=== PATIENT | female | born 1990 | race Caucasian/White ===

== ENCOUNTER 2016-10-20 19:55 | Observation (INO) | payer OTHER ==
[~2016-10-20] VITALS: Ht 165.1 cm; Wt 80.3 kg
--- NOTE | 2016-10-20 23:17 | DIAGNOSTIC IMAGING REPORT ---
PROCEDURE: XR LUMBAR SPINE 2 OR 3 VIEWS INDICATION: TRAUMA/INJURY TECHNIQUE: Three views of the lumbar spine COMPARISON: None. FINDINGS: Five lumbar-type vertebral bodies are present. Normal vertebral body height without fracture. Normal AP and transverse alignment. Disc spacing is normal. No significant endplate or facet joint degeneration. The visible osseous pelvis and bowel gas pattern are normal. IMPRESSION: 1. Intact lumbar spine.
--- NOTE | 2016-10-21 01:32 | ED ORDER SUMMARY ---
..... Patient: GERARDO RAMSEY OrderSheet [facility] VisitID: [id number] [place] [address] 26y, F Registration Date/Time: 10/20/2016 ORDER SHEET Weight: 72.5 kg (stated) Allergies: No Known Drug Allergy GENERAL ORDERS: Lumbar Spine 2 or 3V Urgent (20:55 10/20/2016 EKoroleva P.A.-C) (Ack 20:57 SRedmond) (21:19 Bj) Urine Urgent (22:30 10/20/2016 Venkata HAMMONDS) (Ack 22:35 SRedmpaula) (22:36 SRedmond) MEDICATION ORDERS: IV FLUIDS: Toradol IV 30 mg (NOW) (20:21 10/20/2016 EKoroleva P.A.-C) (Ack 20:26 HSoule) (Cancelled: Patient [id number] AMcKenna) Valium IV 2 mg (HIGH ALERT MEDICATION, NOW) (20:21 10/20/2016 EKoroleva P.A.-C) (Ack 20:26 HSoule) (20:40 AMcKenna) Dilaudid IV 0.5 mg (HIGH ALERT MEDICATION, NOW) (20:51 10/20/2016 EKoroleva P.A.-C) (Ack 20:51 AMcKenna) (20:56 HSoule) Dilaudid IV 0.5 mg (HIGH ALERT MEDICATION) (21:39 10/20/2016 EKoroleva P.A.-C) (Ack 21:40 AMcKenna) (21:49 AMcKenna) Dilaudid IV 1 mg (HIGH ALERT MEDICATION, NOW) (22:11 10/20/2016 EKoroleva P.A.-C) (Ack 22:13 HSoule) (22:18 TLewis R.N.) Valium IV 2 mg (NOW) (22:26 10/20/2016 Venkata HAMMONDS) (Ack 22:27 HSoule) (22:39 AMcKenna) Dilaudid IV 0.5 mg + 0.25 mg titrate (NOW) (23:43 10/20/2016 Venkata HAMMONDS) (Ack 23:44 HSoule) (23:48 HSoule) ORDER SHEET NOTES: [Electronically signed by Naila Andrews (06:10/21/2016)] [Electronically signed by Orville Martin MD (10:19 10/21/2016)] [Electronically locked/signed by Naila Andrews (06:10/21/2016)]
--- NOTE | 2016-10-21 01:32 | ED NURSING NOTES ---
Clinical Report - Nurses [facility] [address] [place] [address] 10/20/2016 19:56 Patient: GERARDO RAMSEY TRIAGE Triage time 19:57 Oct 20 2016. Acuity: LEVEL 2. Chief Complaint: BACK PAIN. SEPSIS SCREEN: Sepsis Screen: negative. Negative (no infection suspected/documented). Heart rate greater than 90. LAMONTE COMA SCORE: [place] Coma Scale: 15- eyes open spontaneously (4); best verbal response- oriented x 4 (5); best motor response- obeys commands (6). --20:06 AliM 19:57 10/20/16. BP: 134/95. HR: 113. RR: 18. O2 saturation: 98%. Temp: 98.4 F (oral). Pain level now: 6/10. Additional comments: Cramping pain, worse with movement. --20:06 AliM. Weight: 72.5 kg stated. Height/Length: 65 inches Per Patient. BMI: 26.6. --20:05 AliM. Medications None. --19:58 AliM. Allergies No Known Drug Allergy. --19:58 AliM. History Arrived by EMS. Historian: patient. Accompanied by family. Primary physician (none). ( Pt fell at home and is non-ambulatory). This started just prior to arrival. ( Pt states she was climbing stairs when she coughed and immediately felt numbness/burning/weakness on her lower back down both legs. Pt states her back slowly went out and she fell to the ground. Pt and EMS reports pt in non ambulatory. Pt states she has felt similar symptoms after childbirth. Pt reports neck/back pain recently.). She has had numbness and weakness. No history of recent trauma. Occurred at home. No tingling. Treatment MBA INTERN: None. EMS treatment MBA INTERN verbally communicated. BP: 137 / 88. HR: 97. RR: 16. O2 saturation: 97. ( EMS reports pt fell. Pt reports numbness and burning in lower back, hips and down both legs.). PAST MEDICAL HX: Tetanus status: unknown. Immunizations: status is unknown. Last normal menstrual period- 2 weeks ago. SOCIAL HX: Current every day light tobacco smoker- less than 1/2 a pack per day. History of occasional drug use: marijuana. No alcohol use. No infectious disease exposure. ABUSE ASSESSMENT: No report of abuse. NUTRITIONAL RISK ASSESSMENT: The nutritional risk assessment revealed no deficiencies. FUNCTIONAL ASSESSMENT: Functional assessment: no impairments noted. LEARNING NEEDS ASSESSMENT: The learning needs assessment revealed no barriers. FALL RISK ASSESSMENT: Fall risk assessment completed. Risk factors identified include severe pain and patient history of fall and impairment of mobility and sensation. Fall interventions initiated. Side rails up x2. Brakes on Bed in low position. Patient visible from nurses' station. Family at bedside. Call light in reach of patient. Instructed not to get up without assistance. SKIN INTEGRITY ASSESSMENT: Skin integrity risk assessment completed. No skin integrity risk identified. --20:06 AliM. PROBLEMS: Allergic Reaction. Pharyngitis. Chest Pain. Headache. Atypical Chest Pain. Immunizations. --19:58 AliM. Interventions ID band on patient. To treatment room. --20:06 AliM. PHYSICAL ASSESSMENT To room via stretcher. GENERAL / NEURO / PSYCH: Alert. Oriented X 4. Appears in no acute distress. She has had intermittent numbness of the right leg and left leg. RESPIRATORY: Respirations not labored. Chest nontender. CVS: Pulses: right dorsalis pedis 1+ and left dorsalis pedis 2+. Capillary refill less than 2 seconds. GI / : Abdomen soft and nontender. EXTREMITIES: Limited ROM present in the right lower leg and left hip and left lower leg. ( Pt reports sensation upon touch of feet bilaterally.). BACK: Limited ROM of the back (pt unable to stand, limited ROM in lower extremities bilaterally.). Abnormal ROM of neck and back. --20:10 AliM. NURSING PROGRESS NOTES 20:01 10/20/2016 Site #1 started via IV in the right antecubital space with an 20g angiocath, with aseptic technique and good blood return; one attempt. Blood drawn. Saline lock flushed with 10 mL saline (IV done by Naila Andrews RN). --20:11 AliM The plan of care for this patient has been created. Reassurance given. Two patient identifiers checked. Call light placed in reach. Side rails up x 2. Bed placed in lowest position. Brakes of bed on. Patient ready for evaluation- ED physician notified. ED physician notified. --20:12 AliM 20:40 10/20/2016 Valium (Diazepam) IVP 2 mg given over 1 minute(s) via site #1. Allergies verified, confirmed 5 rights and sedative warning given to the patient. IV patency established. IV site checked: no pain, redness, or swelling. IV flushed thoroughly pre- and post-medication administration. IVP given by RN. --20:40 AliM 20:40 10/20/2016 Toradol IV 30 mg (NOW) was refused by patient because of concern over the side effects (Pt states medication makes her body "painful"). Luis Hammond --20:40 AliYonatan ( Pt refused Toradol. Pt states medication makes her body uncomfortable. PA notified.). --20:42 AliM 20:56 10/20/2016 Dilaudid (HYDROmorphone HCl PF) IVP 0.5 mg given over 1 minute(s) via site #1. Allergies verified, confirmed 5 rights and sedative warning given to the patient. IV patency established. IV site checked: no pain, redness, or swelling. IV flushed thoroughly pre- and post-medication administration. IVP given by RN. --20:56 Naila Andrews 21:21 Patient assisted with use of bedpan. Voided 250 mL urine. Checked patient name and birthdate urine collected; sample sent to lab. --21:22 Gunnar, Pam, ER Tech1 The plan of care for this patient has been created. Cold pack applied. Reassurance given. Call light placed in reach. Side rails up x 2. Bed placed in lowest position. Brakes of bed on. --21:32 AliM 21:30 10/20/16. BP: 132/84. HR: 93. RR: 16 (regular, unlabored and normal). O2 saturation: 97% on room air. Temp: 99.3 F (oral). Pain level now: 8/10. Additional comments: Pt reports pain is still present; ice packs provided. Reassured pt I will notify her when imaging results come back. --21:32 AliM 21:26 10/20/2016 Dilaudid IVP Response: no adverse reaction symptoms are the same. The patient feels the same. (Pt reports pain 8/10; ice packs provided.). --21:36 AliM 21:49 10/20/2016 Dilaudid (HYDROmorphone HCl PF) IVP 0.5 mg given over 2 minute(s) via site #1. Allergies verified, confirmed 5 rights and sedative warning given to the patient. IV patency established. IV site checked: no pain, redness, or swelling. IV flushed thoroughly pre- and post-medication administration. IVP given by RN. --21:49 Joyce 22:07 10/20/16. Pain level now 8/10. --22:08 Naila Andrews Reassessment after medication administered. Overall patient status- she states feels the same. --22:08 Naila Andrews 22:17 10/20/16. BP: 140/87. HR: 104. RR: 14. O2 saturation: 98%. Pain level now 6/10. --22:17 Cecil Pope R.N. ( MD present in room.). --22:17 Cecil Pope R.N. 22:18 10/20/2016 Dilaudid (HYDROmorphone HCl PF) IVP 1 mg given over 1 minute(s) via site #1. Allergies verified, confirmed 5 rights and sedative warning given to the patient and patient's family. IV patency established. IV site checked: no pain, redness, or swelling. IV flushed thoroughly pre- and post-medication administration. IVP given by RN. --22:18 Cecil Pope R.N. 22:34 10/20/2016 Valium (Diazepam) IVP 2 mg given over 2 minute(s) via site #1. Allergies verified, confirmed 5 rights and sedative warning given to the patient. IV patency established. IV site checked: no pain, redness, or swelling. IV flushed thoroughly pre- and post-medication administration. IVP given by RN. --22:39 Joyce The plan of care for this patient has been created. Monitoring of patient in place. Reassurance given. Call light placed in reach. Side rails up x 2. Bed placed in lowest position. Brakes of bed on. ( Pt repositioned with pillow under left hip). --23:22 Joyce 23:22 10/20/16. BP: 125/72. HR: 83. RR: 18. O2 saturation: 97%. Pain level now: 02/17. --23:23 Joyce 23:40. Blackjack Supervisor provided for the general exam by the physician. --23:45 McQuoid, Pam, ER Tech1 23:48 10/20/2016 Dilaudid (HYDROmorphone HCl PF) IVP 0.5 mg given over 1 minute(s) via site #1. Allergies verified, confirmed 5 rights and sedative warning given to the patient. IV patency established. IV site checked: no pain, redness, or swelling. IV flushed thoroughly pre- and post-medication administration. IVP given by RN. --23:48 Naila Andrews ( Patient oxygen saturation down to 89% after medication administration, 2 L NC applied.). --23:55 Naila Andrews 00:23 10/21/16. ( Asked pt to try walking, sitting on floor and stated "She is NOT going to get up to walk" and "I know my , she won't do that".). --00:23 Elena Mcneal, RJose. Pulse oximeter placed on patient. Reassurance given. Call light placed in reach. Side rails up x 2. Bed placed in lowest position. Brakes of bed on. --00:36 Joyce 00:34 10/21/16. BP: 106/65. HR: 74. RR: 16 (regular, unlabored and normal). O2 saturation: 100% on nasal cannula at 2 liters/minute. Pain level now: 11/18. --00:36 Joyce ( MD was present in the room and attempted to get the patient to walk with the use of a walker. Pt was able to sit and stand on without assistance, but the pt stated she was having burning in the mid lower back. Pt was able to take a small step forward with the use of the walker. Pt was unable to go further and was able to take a step back and laid down in the bed. Pt was tearful and crying. The was able to roll the pt in a comfortable position.). --01:17 Cecil Pope R.N. DISPOSITION / DISCHARGE 02:14 10/21/16. BP: 105/66. HR: 92. RR: 20. O2 saturation: 100% on nasal cannula at 2 liters/minute. Pain level now: 11/18. --02:15 Naila Andrews Condition at departure: stable. Admitted. Report was given to a nurse via a phone call. Report included patient's care, treatment, medications, reviewed medication reconcilliation, and condition (including any recent changes or anticipated changes). All questions were answered. Report was acknowledged and care was transferred. (Lu STOUT). Patient's personal items include: shirt, pants and cell phone; items were transported with the patient. --02:15 Naila Andrews 02:15 10/21/2016 Site #[address] upon admission; patent, no pain and no signs of infection or infiltration; flushes easily. --02:15 Naila Andrews 02:25 10/21/16. Transported via stretcher by [employer] with O2. --02:37 Naila Andrews ( charting reviewed by wiley RN). --06:00 Naila Andrews. Locked/Released at 10/21/2016 6:01 by Naila Andrews,
--- NOTE | 2016-10-21 01:32 | ED ORDER SUMMARY ---
..... Patient: GERARDO RAMSEY OrderSheet [facility] VisitID: [id number] [address] [place] [address] 26y, F Registration Date/Time: 10/20/2016 ORDER SHEET Weight: 72.5 kg (stated) Allergies: No Known Drug Allergy GENERAL ORDERS: Lumbar Spine 2 or 3V Urgent (20:55 10/20/2016 EKoroleva P.A.-C) (Ack 20:57 SRedmond) (21:19 Bj) Urine Urgent (22:30 10/20/2016 Venkata HAMMONDS) (Ack 22:35 SRedmpaula) (22:36 SRedmond) MEDICATION ORDERS: IV FLUIDS: Toradol IV 30 mg (NOW) (20:21 10/20/2016 EKoroleva P.A.-C) (Ack 20:26 HSoule) (Cancelled: Patient Usthqqn47:45 AMcKenna) Valium IV 2 mg (HIGH ALERT MEDICATION, NOW) (20:21 10/20/2016 EKoroleva P.A.-C) (Ack 20:26 HSoule) (20:40 AMcKenna) Dilaudid IV 0.5 mg (HIGH ALERT MEDICATION, NOW) (20:51 10/20/2016 EKoroleva P.A.-C) (Ack 20:51 AMcKenna) (20:56 HSoule) Dilaudid IV 0.5 mg (HIGH ALERT MEDICATION) (21:39 10/20/2016 EKoroleva P.A.-C) (Ack 21:40 AMcKenna) (21:49 AMcKenna) Dilaudid IV 1 mg (HIGH ALERT MEDICATION, NOW) (22:11 10/20/2016 EKoroleva P.A.-C) (Ack 22:13 HSoule) (22:18 TLewis R.N.) Valium IV 2 mg (NOW) (22:26 10/20/2016 Venkata HAMMONDS) (Ack 22:27 HSoule) (22:39 AMcKenna) Dilaudid IV 0.5 mg + 0.25 mg titrate (NOW) (23:43 10/20/2016 Venkata HAMMONDS) (Ack 23:44 HSoule) (23:48 HSoule) ORDER SHEET NOTES: [Electronically signed by Naila Andrews (06:10/21/2016)] [Electronically signed by Orville Martin MD (10:19 10/21/2016)] [Electronically locked/signed by Naila Andrews (06:10/21/2016)]
--- NOTE | 2016-10-21 01:32 | ED CLINICAL REPORT ---
Clinical Report - Physicians/Mid Levels [facility] [address] [place] [address] 10/20/2016 19:56 Patient: GERARDO RAMSEY Time Seen: 20:24 Oct 20 2016. Arrived- By ambulance. Historian- EMS personnel and family. HISTORY OF PRESENT ILLNESS Chief Complaint: BACK PAIN. It is described as being severe and in the area of the lower lumbar spine. The quality is noted to be "pain". Onset was just prior to arrival and it is still present. Modifying factors. (worse with movement). No bladder dysfunction, bowel dysfunction or sensory loss. Additional history - Patient reports while walking in her driveway, hit a coughing episode, developed low back pain, no low back pain persists, she will paresthesias, weakness to her legs, and slowly had to be put down. Denies indirect trauma or impact to the low back. Denies any fevers or chills, history of PE or DVT. Denies any nausea or vomiting. Reports she has been unable to ambulate. No medications prior to arrival. Patient notes the possibility of an injury. Similar symptoms previously: None. Recent medical care: Not recently seen/assessed. REVIEW OF SYSTEMS No fever, difficulty with urination or urination, urinary frequency or headache. No cough, nausea, vomiting, chills or fever. No double vision, ear pain, sore throat, chest pain or cough. No difficulty breathing, abdominal pain, black stools, bloody stools or constipation. No diarrhea, nausea, vomiting, joint pain or neck pain. No laceration or skin lesions or rash. The patient has had back pain. She has had numbness of the right leg (moderate) and left leg (moderate). All systems otherwise negative, except as recorded above. PAST HISTORY PCP: none PROBLEMS: Allergic Reaction. Pharyngitis. Chest Pain. Headache. Atypical Chest Pain. Has not had a prior back injury. Problems: Allergic Reaction. Pharyngitis. Chest Pain. Headache. Atypical Chest Pain. Immunizations. LNMP - Last Normal Menstrual Period. Medications: None. Allergies: No Known Drug Allergy. SOCIAL HISTORY Smoker- current status unknown. History of drug use. ADDITIONAL NOTES The nursing notes have been reviewed. PHYSICAL EXAM Vital Signs: 10/20/2016 19:57 BP: 134/95. HR: 113. RR: 18. O2 saturation: 98%. Temp: 98.4 F. Pain level now: 610. Appearance: Anxious. Appears to be in pain. Patient in mild distress. ENT: Ears normal. Pharynx normal. Neck: Normal inspection. CVS: Heart sounds normal. Respiratory: No respiratory distress. Breath sounds normal. Abdomen: No visible injury. Soft. No mass. No abdominal tenderness. Back: Muscle spasm of the back. Soft tissue tenderness. Limited ROM in the back. Rectal: Rectal exam normal and nontender. (normal saddle sensation to pin). Skin: Skin warm. Normal skin color. Neuro: Oriented X 3. No alteration in mental status. No cranial nerve deficit. No motor deficit. No sensory deficit. No sensory deficit. Reflex exam: right patellar 2+, left patellar 2+, right Achilles 0 and left Achilles 0. LABS, X-RAYS, AND EKG LS-Spine X-rays: (IMPRESSION: 1. Intact lumbar spine. Electronically Final signed by:Avelina Bianchi MD 10/20/2016 11:17:48 PM). PROGRESS AND PROCEDURES Course of Care: Patient in the ER in the supine position, with legs slightly bent at the knees, with a pillow underneath, has good distal range of motion, with inability to extend at the knee. patient with low back pain, afraid to move. She has good sensation no Case discussed with Dr. Martin, who will also see the patient. Lumbar x-rays unremarkable at this time, suspect myofascial strain, lumbar strain versus bulging disc. Less likely cauda equina or spinal cord abscess in light of findings and exam history, as well as history of event. Assumed care from Sergio Bernardo. Independent history and exam done. /Savannah Martin MD Pt given serial doses of Dilaudid and Valium to the point of mild hypoxemia. Despite this should could barely get from supine to sitting and could barely stand but could not walk. The likelihood of her managing at home at this moment is very low. Dr Carter is here in the ED. Dx is most likely severe lumbar muscle spasm. Less likely lumbar disk. Not a neurosurgical emergency. 10/21/2016 00:34 BP: 106/65. HR: 74. RR: 16. O2 saturation: 100%. Pain level now: 11/18. 10/20/2016 23:22 BP: 125/72. HR: 83. RR: 18. O2 saturation: 97%. Pain level now: 02/17. 10/20/2016 22:17 BP: 140/87. HR: 104. RR: 14. O2 saturation: 98%. 10/20/2016 21:30 BP: 132/84. HR: 93. RR: 16. O2 saturation: 97%. Temp: 99.3 F. Pain level now: 03/20. Patient is stable. Patient/family counseled. Disposition: Admitted. CLINICAL IMPRESSION INTRACTABLE BACK PAIN. (Electronically signed by Orville Martin MD 10/21/2016 10:19)
--- NOTE | 2016-10-21 02:03 | Progress Note ---
Subjective General Brief Note: 26 y.o. female with acute onset back pain and inability to move her lower ext. Brought to ER for further eval. Given pain meds and benzos in the ER and still not moving well and severe pain. Admitted for pain control and if not improving may consider MRI in am.
[2016-10-21 02:46] VITALS: BP 110/77
--- NOTE | 2016-10-21 03:14 | HISTORY AND PHYSICAL ---
ADMITTED: 10/21/2016 CHIEF COMPLAINT: 1. Back pain 2. Lower extremity weakness HISTORY OF PRESENT ILLNESS: The patient is a 26-year-old female who was at home when she reached up and felt a pop in her back where she coughed and sneezed at the same time and then had severe back pain and was unable to move her lower extremities with weakness. She had the ambulance called and brought her into the emergency department for further evaluation. MEDICAL/SURGICAL HISTORY: Past medical history: She has generally been healthy. Past surgical history: She has had left finger surgery, partial amputation. MEDICATIONS: 1. She does not take any medications. ALLERGIES: 1. SHE DOES NOT HAVE ANY ALLERGIES TO MEDICATIONS. SOCIAL HISTORY: . She smokes tobacco. Rare alcohol use. She also smokes marijuana as well. FAMILY HISTORY: Positive for hypertension, diabetes, heart disease in both grandmother and grandfather and she has also got a father who of kidney cancer. REVIEW OF SYSTEMS: That is positive for chronic migraines and history of a bad back ever since an epidural on her first child around 12 years ago. She has otherwise had a negative review of systems. Prior to this, she was doing everything at home without any issues or problems. No bowel or bladder problems, etc. PHYSICAL EXAMINATION: GENERAL: The patient is a sedated female who is unable to communicate effectively due to medications and fatigue. VITAL SIGNS: Blood pressure 134/95, heart rate of 113, respirations 18, temperature 98.4, saturating 98% on room air. HEENT: Her extraocular movements are intact. Her oropharynx has moist mucous membranes. NECK: Supple without lymphadenopathy. LUNGS: Clear to auscultation bilaterally. HEART: Regular rate and rhythm. No murmur. ABDOMEN: Soft, slightly tender to palpation in her lower abdominal region bilaterally, nonfocal. GENITOURINARY: Deferred as performed by emergency department doctor. RECTAL: Deferred as performed by emergency department doctor and has normal rectal tone per emergency department physician. EXTREMITIES: Strength and sensation She states that she is able to feel things equally on both lower extremities bilaterally. Her upper extremities are working and moving normally. Her lower extremities. She is minimally able to push out against my hand, also minimally able to pull in against my hands for flexion and extension of her lower extremities. She has normal DTRs at her ankles and her knees. Her physical exam initially, the emergency department doctor was able to have her move her extremities and/or stand; however, after giving her doses of Dilaudid and diazepam, she was able to briefly stand at the bedside per emergency department doctor. LAB/IMAGING: Her urine is negative. Lower back x-rays are intact and appear normal. IMPRESSION: 1. This is a 26-year-old female who presents to the emergency department with severe acute onset of lower back pain and lower extremity weakness. She is also a smoker who has a history of a bad back post-epidural. PLAN: She is going to be admitted and watched for observation and see if she spontaneously improves with her lower extremity weakness. If not, we will have physical therapy ordered as well as consider an MRI if she is continuing to have significant issues with lower extremity weakness and her severe pain.
--- NOTE | 2016-10-21 03:30 | NUR ---
0245 From ED. Unable to scoot from stretcher to bed. Slider board used. Buster fairly well. & mother @bedside. Mother wanting to stay overnight, as she drove 4hrs to get here. Discussed w/nsg sup & agreed mother could stay in waiting room here on 2nd floor. 0300 Med pt w/Dilaudid. She became nauseated, so Zofran given & was effective. RT placed ETCO2 monitor. Pt has some numbness to L lateral thigh & buttock. Describes pain as spasms & has stabbing pain to low back. Now feels she is getting Migraine. When asked what she takes @home, she states Ibuprofen. Offered to call MD for this, but she says timing is off for it, & it won't be effective now. Ice to low back & head. IV infusing. Plan is PT.
--- NOTE | 2016-10-21 05:27 | NUR ---
Pt was able to use bedpan w/assist. Reports pain is improved since onset, but still c/o 8/10 pain, grimacing & was not sleeping. Med again w/1mg Dilaudid.
[2016-10-21 06:54] VITALS: BP 132/82
--- NOTE | 2016-10-21 07:41 | NUR ---
Pt had c/o severe nausea at 0645 & also wanting pain rx. t/c to Dr. Carter as Zofran not yet due. Order taken for X1 Phenergan & this was given. Began to give Dilaudid & pt became increasingly drowsy. Pt & mother agree that 0.5 mg Dilaudid is probably adequate in addition to Phenergan. Discused w/oncoming nurse. ETCO2 is on.
--- NOTE | 2016-10-21 09:14 | NUR ---
DR CHISHOLM WENT INTO SEE PT AND DO ASSESSMENT. PT CONT TO HAVE BACK AND LOWER BACK PAIN WITH MOVEMENT AND BLE MANIPULATION. PT IS TEARFUL WITH ANY MOVEMENT. SCDS HAVE BEEN PLACED. MOTHER IS AT BEDSIDE. PT ENCOURAGED TO ANSWER QUESTIONS AND IDENTIFY PAIN AREA. PT HAS TACTILE SENSATION BLE AND IS ABLE TO MOVE BLE. BUE HAS MOVEMENT AND SENIOR WEALTH ADVISOR. ORDERED MRI AND IV IS INFUSING WITHOUT DIFFICULTY.
--- NOTE | 2016-10-21 10:19 | ED MED RECONCILIATION SUMMARY ---
Patient: GERARDO RAMSEY Medication Reconciliation Report [facility] VisitID: [id number] [address] [place] [address] 26y, F Registration Date/Time: 10/20/2016 Weight: 72.5 kg Height/Length: 65 in. BMI: 26.6 ALLERGIES: No Known Drug Allergy The patient's Home Medications are listed below: NONE. The source(s) of the original Home Medication information: Not obtained. The following Medications were given to the patient in the Emergency Department: Valium [IVP] IVP 2 mg, administered: 10/20/2016 8:40:00 PM Dilaudid [IVP] IVP 0.5 mg, administered: 10/20/2016 8:56:00 PM Dilaudid [IVP] IVP 0.5 mg, administered: 10/20/2016 9:49:00 PM Dilaudid [IVP] IVP 1 mg, administered: 10/20/2016 10:18:00 PM Valium [IVP] IVP 2 mg, administered: 10/20/2016 10:34:00 PM Dilaudid [IVP] IVP 0.5 mg, administered: 10/20/2016 11:48:00 PM The following Medications were prescribed to the patient: None.
--- NOTE | 2016-10-21 10:19 | ED DISCHARGE INSTRUCTIONS ---
Patient: GERARDO RAMSEY General Instructions [facility] VisitID: [id number] [address] [place] [address] 26y, F Registration Date/Time: 10/20/2016 INTRACTABLE BACK PAIN. (Electronically signed by Orville Martin MD 10/21/2016 10:19)
--- NOTE | 2016-10-21 10:19 | ED MED RECONCILIATION SUMMARY ---
Patient: GERARDO RAMSEY Medication Reconciliation Report [facility] VisitID: [id number] [address] [place] [address] 26y, F Registration Date/Time: 10/20/2016 Weight: 72.5 kg Height/Length: 65 in. BMI: 26.6 ALLERGIES: No Known Drug Allergy The patient's Home Medications are listed below: NONE. The source(s) of the original Home Medication information: Not obtained. The following Medications were given to the patient in the Emergency Department: Valium [IVP] IVP 2 mg, administered: 10/20/2016 8:40:00 PM Dilaudid [IVP] IVP 0.5 mg, administered: 10/20/2016 8:56:00 PM Dilaudid [IVP] IVP 0.5 mg, administered: 10/20/2016 9:49:00 PM Dilaudid [IVP] IVP 1 mg, administered: 10/20/2016 10:18:00 PM Valium [IVP] IVP 2 mg, administered: 10/20/2016 10:34:00 PM Dilaudid [IVP] IVP 0.5 mg, administered: 10/20/2016 11:48:00 PM The following Medications were prescribed to the patient: None.
--- NOTE | 2016-10-21 10:19 | ED MAR SUMMARY ---
..... Medication Administration Record [facility] [address] [place] [address] Patient: GERARDO RAMSEY Visit ID: [id number] 26y, F Weight: 72.5 kg Height/Length: 65 in BMI: 26.6 ALLERGIES: No Known Drug Allergy Given 20:40 10/20/2016 AliM, Medication Administered: VALIUM [IVP] (DIAZEPAM), Dose: 2 mg IVP over 1 minute(s), Site: #1 right AC. Medication Ordered: Valium IV 2 mg (HIGH ALERT MEDICATION, NOW). Given 20:56 10/20/2016 Naila Andrews, Medication Administered: DILAUDID [IVP] (HYDROMORPHONE HCL PF), Dose: 0.5 mg IVP over 1 minute(s), Site: #1 right AC. Medication Ordered: Dilaudid IV 0.5 mg (HIGH ALERT MEDICATION, NOW). Given 21:49 10/20/2016 AliM, Medication Administered: DILAUDID [IVP] (HYDROMORPHONE HCL PF), Dose: 0.5 mg IVP over 2 minute(s), Site: #1 right AC. Medication Ordered: Dilaudid IV 0.5 mg (HIGH ALERT MEDICATION). Given 22:18 10/20/2016 Cecil Pope R.N. Medication Administered: DILAUDID [IVP] (HYDROMORPHONE HCL PF), Dose: 1 mg IVP over 1 minute(s), Site: #1 right AC. Medication Ordered: Dilaudid IV 1 mg (HIGH ALERT MEDICATION, NOW). Given 22:34 10/20/2016 AliM, Medication Administered: VALIUM [IVP] (DIAZEPAM), Dose: 2 mg IVP over 2 minute(s), Site: #1 right AC. Medication Ordered: Valium IV 2 mg (NOW). Given 23:48 10/20/2016 aNila Andrews, Medication Administered: DILAUDID [IVP] (HYDROMORPHONE HCL PF), Dose: 0.5 mg IVP over 1 minute(s), Site: #1 right AC. Medication Ordered: Dilaudid IV 0.5 mg + 0.25 mg titrate (NOW).
--- NOTE | 2016-10-21 10:19 | ED MAR SUMMARY ---
..... Medication Administration Record Located Within [facility] [address] [place] [address] Patient: GERARDO RAMSEY Visit ID: [id number] 26y, F Weight: 72.5 kg Height/Length: 65 in BMI: 26.6 ALLERGIES: No Known Drug Allergy Given 20:40 10/20/2016 AliM, Medication Administered: VALIUM [IVP] (DIAZEPAM), Dose: 2 mg IVP over 1 minute(s), Site: #1 right AC. Medication Ordered: Valium IV 2 mg (HIGH ALERT MEDICATION, NOW). Given 20:56 10/20/2016 Naila Andrews, Medication Administered: DILAUDID [IVP] (HYDROMORPHONE HCL PF), Dose: 0.5 mg IVP over 1 minute(s), Site: #1 right AC. Medication Ordered: Dilaudid IV 0.5 mg (HIGH ALERT MEDICATION, NOW). Given 21:49 10/20/2016 AliM, Medication Administered: DILAUDID [IVP] (HYDROMORPHONE HCL PF), Dose: 0.5 mg IVP over 2 minute(s), Site: #1 right AC. Medication Ordered: Dilaudid IV 0.5 mg (HIGH ALERT MEDICATION). Given 22:18 10/20/2016 Cecil Pope R.N. Medication Administered: DILAUDID [IVP] (HYDROMORPHONE HCL PF), Dose: 1 mg IVP over 1 minute(s), Site: #1 right AC. Medication Ordered: Dilaudid IV 1 mg (HIGH ALERT MEDICATION, NOW). Given 22:34 10/20/2016 AliM, Medication Administered: VALIUM [IVP] (DIAZEPAM), Dose: 2 mg IVP over 2 minute(s), Site: #1 right AC. Medication Ordered: Valium IV 2 mg (NOW). Given 23:48 10/20/2016 Naila Andrews, Medication Administered: DILAUDID [IVP] (HYDROMORPHONE HCL PF), Dose: 0.5 mg IVP over 1 minute(s), Site: #1 right AC. Medication Ordered: Dilaudid IV 0.5 mg + 0.25 mg titrate (NOW).
--- NOTE | 2016-10-21 10:19 | ED DISCHARGE INSTRUCTIONS ---
Patient: GERARDO RAMSEY General Instructions [facility] VisitID: [id number] [address] [place] [address] 26y, F Registration Date/Time: 10/20/2016 INTRACTABLE BACK PAIN. (Electronically signed by Orville Martin MD 10/21/2016 10:19)
--- NOTE | 2016-10-21 11:31 | NUR ---
Upon entering room family was A with pt rolling to the left. Education was given on the log roll technique and hand out was also given. pt stated I could ask her about PLOF and house set up. pt lives with in a tri-level house wih 5 stairs to enter and 1 stairs up to the bedroom. There are railings on both sides. She has 3 kids at home and does not currently work secondary to a neck injury. pt's family stated they would like the MRI results before any further PT is given. Will ck kostas for movement part of the evaluation tomorrow 10-22-16.
--- NOTE | 2016-10-21 12:33 | NUR ---
TO MRI ON BED.
--- NOTE | 2016-10-21 14:03 | NUR ---
RETURNED FROM MRI
--- NOTE | 2016-10-21 14:22 | DIAGNOSTIC IMAGING REPORT ---
PROCEDURE: MR LUMBAR SPINE W/WO CONTRAST INDICATION: neurological deficits TECHNIQUE: Noncontrast T1, T2, and STIR sagittal images. T1 and T2 axial images. COMPARISON: None. FINDINGS: L1-2: Normal. L2-3: Normal. L3-4: Normal. L4-5: Normal. L5-S1: Focal herniated nucleus pulposus L5-S1 on the right. There is posterior displacement of the nerve root this level. IMPRESSION: 1. Focal herniated nucleus pulposus L5-S1 on the right.
[2016-10-21 15:11] VITALS: BP 103/61
[2016-10-21 18:15] VITALS: BP 120/82
--- NOTE | 2016-10-21 22:28 | NUR ---
patiet is alert and oriented. RESTING CURRENTLY. LUNGS SOUNDS CLEAR. SCDS ON PER ORDERS. VSS. BOWEL TONES PRESENT ALL QUARDRANTS. DR AWARE OF CURRENT LABS WAS PASSED OFF IN REPORT.
[2016-10-21 23:52] VITALS: BP 104/61
[2016-10-22 02:51] VITALS: BP 88/57
--- NOTE | 2016-10-22 03:35 | NUR ---
Has been sleeping well tonight. at bedside. Pt in much better spirits. pain only 4/10 to low back, so Motrin given. Pt still w/some numbness in BLE. Has +sensation, +pulses & able to move LE in bed (w/pain). SCDs on.
--- NOTE | 2016-10-22 04:00 | NUR ---
After assisted pt on bedpan, pt had severe "cramping" in legs. Med w/Dilaudid.
[2016-10-22 06:14] VITALS: BP 95/60
[2016-10-22 06:19] VITALS: BP 95/60
--- NOTE | 2016-10-22 10:42 | NUR ---
NUTRITION ASSESSMENT: S: Pt admitted with back pain and lower extremity weakness. Went to visit pt this am, working with therapies. Appetite poor d/t pain. Only ate a little of her breakfast this am per care staff. O: Diet Rx: General Regular Thin NKFA Wts: 80.3 kg Ht: 65" IBW: 64-72 kg BMI: 29 %IBW: 117% Est Kcals: ~6365-1240 kcals per day Est fluids: ~2.0 L per day Est pro: ~70-80 g per day Meds Incl: tylenol, flexaril, IVFs, ibuprophen, dilaudid prn, zofran prn, see eMar for complete list Labs Incl: (10/22) glucose 117, BUN 6, Creat 0.6, Na+ 141, K+ 3.7, Ca+ 8.1, total pro 6.1 Skin: Petr Score 18, no open areas noted A: Pt po intake appears to be mostly poor, likely d/t pain per nsg, pain meds antinausea in place. Rev'd labs,. Pt BMI; overweight category, however no weight loss desired at this time, some gradual weight loss to IBW (see above) may be beneficial after pt medically stable. Rec offer muscle milk with meals (8 oz per meal) to help supplement intake with protein. P: 1. Muscle milk [address] to follow up and monitor nutrition indices prn/protocol.
[2016-10-22 11:00] VITALS: BP 112/80
[2016-10-22 14:25] VITALS: BP 109/65
--- NOTE | 2016-10-22 15:44 | Progress Note ---
Subjective General Patient was seen and examined, patient has improved function and sensory function. Patient is currently stable on medication. Constitutional Denies: Fever, Chills, Sweats, Weakness, Malaise, Other. Eyes Denies: Pain, Vision Change, Conjunctival Inflammation, Eyelid Inflammation, Redness, Other. Respiratory Denies: Cough, Dry, SOB w/exertion, Wheezing, Hemoptysis, Pleuritic Pain, Sputum , Other. Cardiovascular Denies: Chest Pain, Palpitations, Orthopnea, PND, Edema, Light-headedness, Other. Gastrointestinal Denies: Nausea, Vomiting, Abdominal Pain, Diarrhea, Constipation, Melena, Hematochezia, Other. Genitourinary Denies: Dysuria, Frequency, Incontinence, Hematuria, Retention, Other. Musculoskeletal Back Pain. Denies: Neck Pain, Shoulder Pain, Arm Pain, Hand Pain, Leg Pain, Foot Pain, Other. Skin Denies: Rash, Lesions, Jaundice, Bruising, Other. Neurological Denies: Weakness, Numbness, Incoordination, Change in speech, Confusion, Seizures, Other. Physical Exam Vital Signs / I&Os Vital Signs Date Time Temp Pulse Resp B/P Pulse O2 O2 Flow FiO2 Ox Delivery Rate 10/22 1425 97.7 82 18 109/65 100 Room Air 10/22 1335 97.9 10/22 1100 78 16 112/80 100 Room Air 0.0 10/22 0614 98.1 81 16 95/60 100 10/22 0251 97.3 82 18 88/57 90 Room Air 0.0 10/21 2352 98.4 74 16 104/61 99 Room Air 0.0 10/21 1934 102 12 100 2.0 10/21 1815 98.4 87 18 120/82 100 Room Air 2.0 10/21 1600 87 18 99 2.0 10/21 1549 2.0 I&O 10/21 0800 10/21 1600 10/22 0000 Intake Total 598 120 Output Total 380 500 350 Balance 218 -500 -230 General Appearance Alert, Oriented X3, No acute distress Lungs Clear to auscultation, Normal air movement Cardiovascular Normal S1 and S2, No murmurs, gallops, rubs Abdomen Soft, No tenderness, No guarding Extremities No edema, Normal pulses, No tenderness, Strength = upper ext's, - improved ability to move Skin No Breakdown, No Significant Lesions Neurological Normal tone, Sensation intact, Cranial nerves intact, No lateralizing signs LAB Results Laboratory Tests 10/22 0530 Chemistry Plasma Sodium (136 - 145 mmol/L) 141 Plasma Potassium (3.5 - 5.1 mmol/L) 3.7 Plasma Chloride (98 - 107 mmol/L) 106 CO2 (Enzymatic) (21 - 32 mmol/L) 25 BUN (7 - 18 mg/dL) 6 Creatinine (0.6 - 1.3 mg/dL) 0.6 Est GFR ( Amer) (mL/min) >60 Est GFR (Non-Af Amer) (mL/min) >60 Glucose (70 - 110 mg/dL) 117 Plasma Calcium (8.5 - 10.1 mg/dL) 8.1 Total Bilirubin (0.0 - 1.0 mg/dL) 0.5 AST (15 - 37 U/L) 12 ALT (12 - 78 U/L) 15 Alkaline Phosphatase (46 - 116 U/L) 52 Total Protein (6.4 - 8.2 g/dL) 6.1 Albumin (3.3 - 5.0 g/dL) 3.3 Hematology WBC (4.5 - 11.5 K/uL) 6.6 RBC (4.00 - 5.20 M/uL) 4.70 Hgb (12.0 - 16.0 gm/dL) 12.5 Hct (36.0 - 46.0 %) 38.2 MCV (80 - 100 fL) 81 MCH (26 - 34 pg) 27 RDW (11.6 - 14.8 %) 15.6 Neut % (Auto) (50 - 75 %) 63.0 Lymph % (Auto) (25 - 40 %) 26.2 [place] % (Auto) (3 - 14 %) 10.1 Eos % (Auto) (0 - 4 %) 0.5 Baso % (Auto) (0 - 2 %) 0.2 Plt Count, EDTA (150 - 400 K/uL) 222 PUBS MCHC (31 - 37 g/dL) 33 Assessment and Plan Problem List 1. Back pain Plan - secondary to disc protrusion at the L5 level - no nerve compression and no canal stenosis - pain is appropriately controlled with acetaminophen and ibuprofen 2. Weakness of both legs Plan - improving - will discharge with physical therapy - will make arrangements to dc with home health
--- NOTE | 2016-10-22 15:46 | Provider's Discharge Care Plan ---
Problem, Goal, Plan Problem List 1. Back pain Instructions: Take meds as directed, - follow up with your primary care physician - adhere to physical therapy schedule -take medications around the clock to reduce the inflammation 2. Weakness of both legs Instructions: - will improve with PT. work with PT at home and by yourself to build up strength
[2016-10-22] MEDS ORDERED: MAPAP325 MG PO (15:47)
[2016-10-22] MEDS ORDERED: CYCLOBENZAPRINE10 MG PO (15:47)
[2016-10-22] MEDS ORDERED: IBUPROFEN600 MG PO (15:47)
[2016-10-22] MEDS ORDERED: COLACE100 MG PO (15:48)
[2016-10-22] MEDS ORDERED: PERCOCET1 TA1 PO (15:48)
--- NOTE | 2016-10-22 16:06 | Discharge Summary ---
Discharge Summary Report Admit Date 10/21/16 Discharge Date 10/22/16 Admission Diagnosis BACK PAIN Discharge Diagnosis L5 disc herniation Brief History The patient is a 26-year-old female who was at home when she reached up and felt a pop in her back where she coughed and sneezed at the same time and then had severe back pain and was unable to move her lower extremities with weakness. She had the ambulance called and brought her into the emergency department for further evaluation. Hospital Course Patient is a 26 year old female that was admitted for intractable back pain. Patient was initially taken placed on a fair amount of pain medications which made a complete exam difficult. Patient upon exam had significant impairment, and had difficulty moving her lower extremities. Patient additonally had feelings of numbness in the bilateral lower extremities. Patient had an MRI which revealed L5 disc protrusion without any evidence of neural compression. Patients images were reviewed by neurology and neurosurgery personnel. Patient was treated with anti inflammatory agents with moderate reduction in pain and with return of functionality. Patient was seen to improve and it was decided that the patient could be discharged with out patient physical therapy. Arrangments were made to have the patient discharged to home with medical supplies. Patient will follow up with her pmd at a later date. General Appearance Alert, Oriented X3, Mild distress HEENT EOMI, Mucous membran moist/pink Cardiovascular Normal S1, Normal S2, No murmurs Abdomen Soft, No tenderness, No hepatospenomegaly Skin No Rashes, No Breakdown, No Significant Lesions Neurological Normal speech, Normal tone, Sensation intact, Cranial nerves 3-12 NL, - pain present on straight leg raises, flexion of the knee and hip. Discharge Instructions/Meds - take medication as prescribed - follow up with you pcp - no heavy lifting
--- NOTE | 2016-10-22 18:16 | NUR ---
PATIENT WAS WHEELED DOWN AROUND 1800 ON A STRETCHER WITH [facility] AND HER FAMILY. SHE WAS ALERT AND ORIENTED. LUNG SOUNDS CLEAR. WAS WEARING SCDS THROUGHOUT THE DAY FOR DVT PREVENTION. HAD ALL HER BELONGINS. WAS GIVEN HER DISCHARGE PACKET AND PERSCRIPTIONS. WAS TOLD WHAT SYMPTOMS TO REPORT (SOB/ CHEST PAIN/ N/V, FEVER, ANY FURTHER INCRESE IN PAIN, NUMBNESS OR TINGLING IN EXTREMITIES). WAS TOLD ABOUT HER FOLLOW UP APOINTMENT. D/C ALL LINES AND TUBES. CATHETER WAS INTACT. TOLD PATIENT NO HEAVY LIFTING. WAS GIVEN HER PACKET THAT FURTHER EXPLAIND NO DRIVING UNTILL FOLLOW UP.
== END 2016-10-22 18:00 | disposition home or self-care (01) ==
LOC: ED SRH 19:55 → TRANS SRH 10-21 01:41 → ACUTE2 SRH 10-21 01:41
PROVIDERS: ADMIT Family Medicine
DX: M51.26 Other intervertebral disc displacement, lumbar region (principal); M62.830 Muscle spasm of back; R68.89 Other general symptoms and signs; R09.02 Hypoxemia; T40.2X5A Adverse effect of other opioids, initial encounter; T42.4X5A Adverse effect of benzodiazepines, initial encounter
CPT/HCPCS: 29230; 29259; 29264; 90074; 90100; 93070; 95059